=== PATIENT | female | born 1985 | race Caucasian/White ===

== ENCOUNTER 2017-04-14 20:49 | Emergency (ER) | payer BC ==
[~2017-04-14] VITALS: Ht 167.6 cm; Wt 88.8 kg
[~2017-04-14 20:49] MED LIST: DEXT15TA PO
[2017-04-14 20:53] VITALS: BP 155/79; PULSE 99; RESP 18; TEMP 97.8; O2SAT 97
[2017-04-14] MEDS ORDERED: CYCL10TA PO (22:17)
[2017-04-14] MEDS ORDERED: KETO10 PO (22:17)
--- NOTE | 2017-04-14 22:18 | PD ---
HPI Chief Complaint: Musculoskeletal Complaint Time Seen by Provider: 22:01 Travel History International Travel<30 days: No Contact w/Intl Traveler<30days: No Traveled to known affect area: No History of Present Illness HPI Patient presents today complaining of right calf pain, does not have any redness rash or swelling to the area, occurred during her running in 5K [employer] once running yesterday in a 5k, after icing it has been improving but wanted to check and make sure. patient rates pain 5/10 with ambulation only but not at rest. PFSH Past Medical History ?: Not LMP: 04/01/2017 Past Surgical History Other Surgery: Yes (BREAST AUGMENTATION) Social History Alcohol Use: Yes (Occ.) Tobacco Use: No Substance Use: No Allergies-Medications (Allergen,Severity, Reaction): Coded Allergies: No Known Allergies (Verified Adverse Reaction, Unknown, 04/14/17) Reported Meds & Prescriptions Reported Meds & Active Scripts Active No Active Prescriptions or Reported Medications Review of Systems Except as stated in HPI: all other systems reviewed are Neg General / Constitutional: No: Fever Eyes: No: Visual changes HENT: No: Headaches Cardiovascular: No: Chest Pain or Discomfort Respiratory: No: Shortness of Breath Gastrointestinal: No: Abdominal Pain Genitourinary: No: Dysuria Musculoskeletal: Positive: Cramping, Pain Skin: No Rash Neurologic: No: Weakness Psychiatric: No: Depression Endocrine: No: Polydipsia Hematologic/Lymphatic: No: Easy Bruising Physical Exam Narrative GENERAL: SKIN: Warm and dry. HEAD: Atraumatic. Normocephalic. EYES: Pupils equal and round. No scleral icterus. No injection or drainage. ENT: No nasal bleeding or discharge. Mucous membranes pink and moist. NECK: Trachea midline. No JVD. CARDIOVASCULAR: Regular rate and rhythm. RESPIRATORY: No accessory muscle use. Clear to auscultation. Breath sounds equal bilaterally. GASTROINTESTINAL: Abdomen soft, non-tender, nondistended. MUSCULOSKELETAL: Extremities without clubbing, cyanosis, or edema. No obvious deformities. NEUROLOGICAL: Awake and alert. No obvious cranial nerve deficits. Motor grossly within normal limits. Five out of 5 muscle strength in the arms and legs. Normal speech. PSYCHIATRIC: Appropriate mood and affect; insight and judgment normal. Data Data Last Documented VS Vital Signs Date Time Temp Pulse Resp B/P (MAP) Pulse Ox O2 Delivery O2 Flow Rate FiO2 1/18/18 20:53 97.8 99 18 155/79 (104) 97 MDM Medical Decision Making Medical Screen Exam Complete: Yes Emergency Medical Condition: Yes Medical Record Reviewed: Yes Differential Diagnosis strain v tear v contusion Narrative Course after clinical evaluation, great pulses dpi, no rash/cellulitic changes, minor ttp along muscle, patient able to flex/extend at ankle. Diagnosis Primary Impression: Muscle strain of right lower leg Qualified Codes: S86.911A - Strain of unspecified muscle(s) and tendon(s) at lower leg level, right leg, initial encounter Patient Instructions: General Instructions, Muscle Strain (DC) Scripts Ketorolac (Ketorolac) 10 Mg Tab 10 MG PO Q6HR Y for PAIN, #14 TAB 0 Refills Prov: Corwin Damon MD 04/14/17 Cyclobenzaprine (Flexeril) 10 Mg Tab 10 MG PO TID for Muscle Spasm, #21 TAB 0 Refills Prov: Corwin Damon MD 04/14/17 Disposition: 01 DISCHARGE HOME Condition: Stable Corwin Damon MD Apr 14, 2017 22:18
== END 2017-04-14 22:28 | disposition home or self-care (01) ==
LOC: PHEFT 20:49
DX: S86.911A Strain of unspecified muscle(s) and tendon(s) at lower leg level, right leg, initial encounter (principal); X58.XXXA Exposure to other specified factors, initial encounter; Y93.02 Activity, running
CPT/HCPCS: 99284

== ENCOUNTER 2017-05-10 09:42 | Emergency (ER) | payer BC ==
[~2017-05-10] VITALS: Ht 168.9 cm; Wt 86.7 kg
[~2017-05-10 09:42] MED LIST changes: +CYCL10TA PO; -DEXT15TA PO; +KETO10 PO
[2017-05-10 09:52] VITALS: BP 146/97; PULSE 115; RESP 16; TEMP 98.2; O2SAT 98
[2017-05-10] MEDS ORDERED: NAPR1TAB98 PO (09:59)
[2017-05-10] MEDS ORDERED: LIDOCAINE HCL 1% PF 10 ML VIAL ONE (10:23)
[2017-05-10] MEDS ORDERED: LIDOCAINE HCL 1% 50 ML VIAL INFIL ONE (10:30)
--- NOTE | 2017-05-10 10:50 | PD ---
HPI Chief Complaint: Laceration/Skin Injury Time Seen by Provider: 10:11 Travel History International Travel<30 days: No Contact w/Intl Traveler<30days: No Traveled to known affect area: No History of Present Illness HPI 31-year-old female presents to the emergency room for laceration to the left eyebrow. Patient states she was dancing with socks on when she slid into the corner of the door. No loss of consciousness, nausea, or vomiting. She states she feels a little woozy. She applied a Band-Aid but could not get it to stop bleeding. Denies any chronic medical conditions. She is not on any blood thinners. Last tetanus was 2 years ago. PFSH Past Medical History ?: Not Past Surgical History Other Surgery: Yes (BREAST AUGMENTATION) Social History Alcohol Use: Yes (Occ.) Tobacco Use: No Substance Use: No Allergies-Medications (Allergen,Severity, Reaction): Coded Allergies: No Known Allergies (Verified Adverse Reaction, Unknown, 05/10/17) Reported Meds & Prescriptions Reported Meds & Active Scripts Active Reported Aleve PM (Naproxen Sodium-Diphenhydramine) 220-25 Mg Tab 1 Tab PO HS PRN Review of Systems Except as stated in HPI: all other systems reviewed are Neg Physical Exam Narrative GENERAL: Well-nourished, well-developed pat female in no acute distress. Afebrile. Ambulatory. SKIN: Focused skin assessment warm/dry. There is a 2 cm laceration above the left eyebrow. Nonbleeding. No surrounding ecchymosis. HEAD: Normocephalic. EYES: No scleral icterus. No injection or drainage. NECK: Supple, trachea midline. No JVD or lymphadenopathy. CARDIOVASCULAR: Regular rate and rhythm without murmurs, gallops, or rubs. RESPIRATORY: Breath sounds equal bilaterally. No accessory muscle use. NEUROLOGICAL: Awake and alert. Cranial nerves II through XII intact. Motor and sensory grossly within normal limits. Five out of 5 muscle strength in all muscle groups. Normal speech. Data Data Last Documented VS Vital Signs Date Time Temp Pulse Resp B/P (MAP) Pulse Ox O2 Delivery O2 Flow Rate FiO2 05/10/17 10:57 80 16 Room Air 05/10/17 09:52 98.2 146/97 (113) 98 Orders Orders Lidocaine 1% Inj (50 Ml) (Xylocaine 1% I (05/10/17 10:30) Lidocaine Pf 1% Inj (Xylocaine-Mpf 1% In (05/10/17 10:23) Ed Discharge Order (05/10/17 10:50) [facility] Medical Decision Making Medical Screen Exam Complete: Yes Emergency Medical Condition: Yes Medical Record Reviewed: Yes Differential Diagnosis Laceration, contusion, abrasion, fracture Narrative Course 31-year-old female presents to the emergency room for evaluation of a laceration to her left eyebrow that occurred just prior to arrival. Patient ran into her door. No loss of consciousness. [place] CT rule exclude need for imaging at this time. There is a 2 cm deep laceration that was repaired with buried and superficial sutures. Patient given wound care instructions and told to return in 5 days for removal. She understands and agrees to plan. Procedures Procedure Narrative LACERATION LOCATION: Left eyebrow LENGTH: 2 cm linear NUMBER OF STITCHES/MARZENA: 5 simple interrupted, 1 buried REPAIR: The area of the laceration was prepped with Betadine and sterilely draped. The laceration was infiltrated with 1% lidocaine. The wound was copiously irrigated and explored without evidence of foreign body, tendon injury or neurovascular injury. The wound was closed using 6-0 Prolene and 5-0 Vicryl. This was a double layer repair. A sterile dressing was applied. The patient was advised to keep the dressing clean and dry. Patient tolerated the procedure well. Diagnosis Primary Impression: Laceration of left eyebrow Qualified Codes: S01.112A - Laceration without foreign body of left eyelid and periocular area, initial encounter Referrals: Primary Care Physician Patient Instructions: Moderate Sedation (ED) Additional Instructions: Rest and drink fluids. Keep wound clean and dry. Apply triple antibiotic ointment daily. Return in 5 days to have sutures removed. Follow-up with a primary care physician. Return to the emergency room for worsening symptoms. Med/Other Pt SpecificInfo: Prescription(s) given Disposition: 01 DISCHARGE HOME Condition: Stable [place] May 10, 2017 10:50
[2017-05-10 10:57] VITALS: PULSE 80; RESP 16
== END 2017-05-10 11:16 | disposition home or self-care (01) ==
LOC: PHEFT 09:42
DX: S01.112A Laceration without foreign body of left eyelid and periocular area, initial encounter (principal); W22.8XXA Striking against or struck by other objects, initial encounter; Y93.41 Activity, dancing
CPT/HCPCS: 12051